=== PATIENT | male | born 1980 | race Caucasian/White ===

== ENCOUNTER → 2020-05-13 | Outpatient (CLI) | payer OTHER ==
[~2020-05-13] MED LIST: NOHOMEMEDICATIONS; SYMBICORT160 MCG/4. INH
--- NOTE | ~2020-05-13 | H ---
[facility] [place] [address] HISTORY AND PHYSICAL Name: SHELLEY SWAN Room #: REG [facility].#: [id number] Admission: 05/13/20 Attend Phys: Kelechi Jackson MD Discharge: Date of : 76 Report #: [id number] THIS REPORT FOR: cc: FAM - Family physician unknown FAM - Family physician unknown Kelechi Jackson MD ~ DATE OF SERVICE: 05/17/2020 SURGERY ADMISSION HISTORY AND PHYSICAL PATIENT OF: Dr. Suhas Thompson DATE OF ADMISSION AND SURGERY: 05/18/2020 CHIEF COMPLAINT: Abdominal bulge. HISTORY OF PRESENT ILLNESS: The patient is a 40-year-old -[place] male who last July started noticing a bulge in the umbilicus. He started having some discomfort around August. He denied any changes in bowel or bladder habits. No previous history of any umbilical surgery. He has had an appendectomy through a right lower quadrant incision in the late . He saw the nurse practitioner, Marianne Ramos and Dr. Thompson's office who recommended surgical consultation. PAST MEDICAL HISTORY: Sickle cell anemia, torn Achilles tendon, asthma, COVID-19 positive in 01/2020, appendectomy in 1995. MEDICATIONS: Flonase, Symbicort, hydroxyzine. ALLERGIES: No known drug allergies. FAMILY HISTORY: Noncontributory. SOCIAL HISTORY: The patient is single. Quit smoking 15 years ago. Drinks alcohol occasionally. REVIEW OF SYSTEMS: Pertinent positives as above. Full review of systems otherwise negative. PHYSICAL EXAMINATION: GENERAL: This is a well-developed, well-nourished -[place] male in no acute distress. VITAL SIGNS: Stable. He is afebrile. Height 6 feet 1 inch, weight is 247 pounds, BMI of 32.6. HEENT: Unremarkable. LUNGS: Clear to auscultation bilaterally. Normal excursion. [facility] [address] [place] [address] HISTORY AND PHYSICAL Name: SOSASHELLEY [id number] Admission: 05/13/20 Attend Phys: Kelechi Jackson MD Discharge: Date of : 76 Report #: [id number] CARDIOVASCULAR: Regular rate and rhythm. No murmurs, S3 or S4. Normal PMI. ABDOMEN: Soft, flat and nontender. No palpable masses, no organomegaly. There is a well-healed right lower quadrant appendectomy incision scar, without any hernia. There is an umbilical hernia, which is partially reducible. EXTREMITIES: No clubbing, cyanosis or edema. NEUROLOGIC: Intact with a clear mental status. IMPRESSION: A 40-year-old -[place] male with an umbilical hernia, which is incarcerated. I fully discussed with the patient the diagnosis, prognosis, and treatment options. I recommend umbilical hernia repair. He states he understands and agrees to proposed surgery. PLAN: We will perform an umbilical hernia repair under local IV sedation as an outpatient at [facility]. The procedure and its risks, benefits and possible complications were fully discussed with the patient. He states he understands and agrees to proposed surgery. By: [id number] Kelechi Jackson MD /nt
== END ==
LOC: LAB 11:11
PROVIDERS: ATTEND Surgery
DX: Z01.812 Encounter for preprocedural laboratory examination (principal); Z20.828 Contact with and (suspected) exposure to other viral communicable diseases

== ENCOUNTER → 2020-05-18 | Day surgery (SDC) | payer OTHER ==
[~2020-05-18] VITALS: Ht 185.4 cm; Wt 108.9 kg
[~2020-05-18] MED LIST changes: +NORCO 5-325 TA1 EAC2 PO
--- NOTE | ~2020-05-18 | O ---
[facility] [place] [address] OPERATIVE REPORT Name: SHELLEY SWAN Room #: REG [facility]..#: [id number] Admission: 05/18/20 Attend Phys: Kelechi Jackson MD Discharge: Date of : 76 Report #: [id number] THIS REPORT FOR: cc: VI - Family physician unknown FAM - Family physician unknown Kelechi Jackson MD ~ DATE OF SERVICE: 05/18/[address] Kelechi Jackson and Dr. Suhas Thompson PREOPERATIVE DIAGNOSIS: Incarcerated umbilical hernia. POSTOPERATIVE DIAGNOSIS: Incarcerated umbilical hernia. PROCEDURE: Repair of an incarcerated umbilical hernia. SURGEON: Dr. Kelechi Jackson ANESTHESIA: Local IV sedation. DESCRIPTION OF PROCEDURE: The patient was brought to the operating room and placed on operative table in the supine position. Sequential compression devices were in place for DVT prophylaxis. There was no indication for preoperative antibiotics. The patient underwent IV sedation. The abdomen was then prepped and draped in a sterile fashion. Skin and subcutaneous tissue around the umbilicus was then infiltrated with 0.5% Marcaine and 1% Xylocaine with epinephrine. Transverse infraumbilical skin incision was then performed using a #15 scalpel blade. Hemostasis obtained using the electrocautery. Dissection was carried down through subcutaneous tissue to the incarcerated preperitoneal fat, which was dissected free and reduced back through the fascia into the preperitoneal space. I placed a finger through the fascial defect and I felt around superiorly, inferiorly, medially and laterally and there was no evidence of any other fascial defects. I then repaired the incarcerated hernia with interrupted [id number] #1 Prolene sutures. The umbilicus was then tacked to the fascia using a 2-0 chromic suture. Deep and superficial subcutaneous tissue then reapproximated using simple interrupted 2-0 chromic sutures and the skin then closed with a running 4-0 subcuticular Vicryl stitch. Wound was then dressed with Dermabond, Telfa, 4 x 4 gauze, sponge and tape. The patient was then taken to the recovery room awake, alert and in good condition. Estimated blood loss was approximately 5 mL and the patient tolerated procedure well. All sponge, lap and instrument counts correct x 2. By: [id number] Kelechi Jackson MD /nt
--- NOTE | ~2020-05-18 | H ---
[facility] [place] [address] HISTORY AND PHYSICAL Name: SHELLEY SWAN Room #: REG [facility] M..#: [id number] Admission: 05/18/20 Attend Phys: Kelechi Jackson MD Discharge: Date of : 76 Report #: [id number] THIS REPORT FOR: cc: FAM - Family physician unknown FAM - Family physician unknown Kelechi Jackson MD ~ DATE OF SERVICE: 05/17/2020 SURGERY ADMISSION HISTORY AND PHYSICAL PATIENT OF: Dr. Suhas Thompson DATE OF ADMISSION AND SURGERY: 05/18/2020 CHIEF COMPLAINT: Abdominal bulge. HISTORY OF PRESENT ILLNESS: The patient is a 40-year-old -[place] male who last July started noticing a bulge in the umbilicus. He started having some discomfort around August. He denied any changes in bowel or bladder habits. No previous history of any umbilical surgery. He has had an appendectomy through a right lower quadrant incision in the late . He saw the nurse practitioner, Marianne Ramos and Dr. Thompson's office who recommended surgical consultation. PAST MEDICAL HISTORY: Sickle cell anemia, torn Achilles tendon, asthma, COVID-19 positive in 01/2020, appendectomy in 1995. MEDICATIONS: Flonase, Symbicort, hydroxyzine. ALLERGIES: No known drug allergies. FAMILY HISTORY: Noncontributory. SOCIAL HISTORY: The patient is single. Quit smoking 15 years ago. Drinks alcohol occasionally. REVIEW OF SYSTEMS: Pertinent positives as above. Full review of systems otherwise negative. PHYSICAL EXAMINATION: GENERAL: This is a well-developed, well-nourished -[place] male in no acute distress. VITAL SIGNS: Stable. He is afebrile. Height 6 feet 1 inch, weight is 247 pounds, BMI of 32.6. HEENT: Unremarkable. LUNGS: Clear to auscultation bilaterally. Normal excursion. [facility] [address] [place] [address] HISTORY AND PHYSICAL Name: SHELLEY SWAN Room #: REG [facility]#: [id number] Admission: 05/18/20 Attend Phys: Kelechi Jackson MD Discharge: Date of : 76 Report #: [id number] CARDIOVASCULAR: Regular rate and rhythm. No murmurs, S3 or S4. Normal PMI. ABDOMEN: Soft, flat and nontender. No palpable masses, no organomegaly. There is a well-healed right lower quadrant appendectomy incision scar, without any hernia. There is an umbilical hernia, which is partially reducible. EXTREMITIES: No clubbing, cyanosis or edema. NEUROLOGIC: Intact with a clear mental status. IMPRESSION: A 40-year-old -[place] male with an umbilical hernia, which is incarcerated. I fully discussed with the patient the diagnosis, prognosis, and treatment options. I recommend umbilical hernia repair. He states he understands and agrees to proposed surgery. PLAN: We will perform an umbilical hernia repair under local IV sedation as an outpatient at [facility]. The procedure and its risks, benefits and possible complications were fully discussed with the patient. He states he understands and agrees to proposed surgery. By: [id number] Kelechi Jackson MD /nt
[2020-05-18 09:07] VITALS: BP 119/84
[2020-05-18 10:16] VITALS: BP 119/84
[2020-05-18 10:17] VITALS: BP 119/84
== END | disposition home or self-care (01) ==
LOC: OR
PROVIDERS: ATTEND Surgery
DX: K42.0 Umbilical hernia with obstruction, without gangrene (principal); J45.909 Unspecified asthma, uncomplicated; Z90.49 Acquired absence of other specified parts of digestive tract; Z98.890 Other specified postprocedural states; Z79.899 Other long term (current) drug therapy; Z87.891 Personal history of nicotine dependence
CPT/HCPCS: 50010; 50101; 50386; 50417; 54118; 56524; 56525; 56526; 62110; 62850; 70005